=== PATIENT | male | born 1960 | race Caucasian/White ===

== ENCOUNTER 2017-12-24 04:53 | Inpatient (IN) | payer OTHER ==
[2017-12-24] VITALS (16 sets, daily range): BP systolic 121–200; BP diastolic 73–119
[~2017-12-24] VITALS: Ht 182.9 cm; Wt 72.7 kg
[~2017-12-24 04:53] MED LIST: BACTRIM DS TAB1 EACH PO; BYSTOLIC 5 MG5 M1 PO
[2017-12-24] MEDS ORDERED: LISINOPRIL20 MG PO (05:04)
--- NOTE | 2017-12-24 05:04 | NUR ---
PATIENT PRESENTS VIA WAITING ROOM. PATIENT STATES HE DROVE TO THE HOSPITAL; BECAUSE HE HAS BEEN WITHOUT HIS METHADONE AND HAS BEEN DRINKING ALCOHOL AND NEEDS HIS METHADONE. PATIENT SITTING IN A WHEELCHAIR, HAS ARM TREMOURS AND HOLDING AN EMISIS BAG. PATIENT HAVING FREQUENT OUTBURSTS STATING IN NEED HELP AND I NEED MY METHADONE.
[2017-12-24] MEDS ORDERED: METHADONE10 MG/1 M1 PO (05:05)
[2017-12-24 06:04] LABS: ABSOLUTE LYMPHOCYTES 1.6 thou/uL (0.8-5.3); ABSOLUTE MONOCYTES 0.8 thou/uL (0.0-1.2); ABSOLUTE NEUTROPHILS 12.9 thou/uL (1.6-8.1); BASOPHILS 0.3 %; EOSINOPHILS 0.1 %; HEMATOCRIT 52.6 % (42.0-52.0); LYMPHOCYTES 10.7 %; MCHC 34.2 g/dL (28.0-37.0); MCV 99.3 fL (80.0-100.0); MONOCYTES 5.3 %; MPV 7.5 fl. (7.2-11.1); NUCLEATED RBCS 0 /100WBC; PLATELET COUNT* 321 thou/uL (150-400); POLYS 83.6 %; RBC 5.29 mil/uL (4.50-6.00); RDW-CV 15.6 % (10.5-14.5); WBC 15.4 thou/uL (4.0-11.0)
[2017-12-24 06:20] LABS: CALCIUM 8.5 mg/dL (8.5-10.1); POTASSIUM 3.9 mmol/L (3.5-5.1)
[2017-12-24 06:25] LABS: ALBUMIN 4.3 g/dL (3.4-5.0); TOTAL BILIRUBIN 0.4 mg/dL (<0.1-1.0); TOTAL PROTEIN 8.8 g/dL (6.4-8.2)
--- NOTE | 2017-12-24 14:38 | EKG ---
[place] [address] ELECTROCARDIOGRAM REPORT Name: ELLIOTT HERNANDEZ Room: [address] ADM IN .R.#: [id number] Admission: 12/24/17 Attend Phys: Sharonda June MD Discharge: Date of : 64 Report #: [id number] THIS REPORT FOR: //name// [facility] ED Test Date: 2017-12-24 Test Time: 08:29:49 Pat Name: ELLIOTT HERNANDEZ Department: Room: [facility] Gender: M Senior Project Leader/Team Lead: LAURA : 1960 Requested By: Luana Cali Order Number: [id number] MD: Nikita Dillon Measurements Intervals [place] Rate: 124 P: 74 CT: 167 QRS: 65 QRSD: 87 T: 14 QT: 316 QTc: 454 Interpretive Statements Sinus tachycardia No previous ECG available for comparison Electronically Signed On 12-24-2017 14:38:04 CDT by Nikita Dillon [email or web address] <ELECTRONICALLY SIGNED> By: Marlyn Dillon MD, [facility] 12/24/17 1438 0829 8 Marlyn Dillon MD, FACC /EPI
--- NOTE | 2017-12-24 18:45 | NUR ---
PATIENT WAS VERY AGITATED DURING THE SHIFT. PATIENT'S CIWA RANGED 14-21. PATIENT IS IMPULSIVE AND GETS OUT OF BED. SITTER AT BEDSIDE. BEDSIDE REPORT TO BE GIVEN TO ONCOMING SHIFT.
[2017-12-25] VITALS (22 sets, daily range): BP systolic 123–167; BP diastolic 72–107
[2017-12-25 04:14] LABS: HEMATOCRIT 37.8 % (42.0-52.0); MCHC 34.5 g/dL (28.0-37.0); MCV 98.6 fL (80.0-100.0); MPV 7.8 fl. (7.2-11.1); RBC 3.84 mil/uL (4.50-6.00); RDW-CV 15.9 % (10.5-14.5); WBC 8.1 thou/uL (4.0-11.0)
[2017-12-25 05:12] LABS: ALBUMIN 2.9 g/dL (3.4-5.0); CREATININE 0.8 mg/dL (0.6-1.3); MAGNESIUM 1.9 mg/dL (1.8-2.4); POTASSIUM 3.9 mmol/L (3.5-5.1); TOTAL PROTEIN 5.5 g/dL (6.4-8.2)
--- NOTE | 2017-12-25 05:26 | NUR ---
PT. REMAINS ORIENTED TO PERSON AND PLACE, ORIENTED TO DATE BUT FORGETFUL REGARDING TIME. REORIENTED SUCCESSFULLY. LAST CIWA 7. PT. HAD FAIR APPETITE THIS SHIFT, ATE MAJORITY OF BOXED LUNCH. IVF INFUSING. PT. IS CONTINENT OF URINE. SITTER HAS REMAINED AT BEDSIDE THROUGHOUT SHIFT. ROOM AIR. WILL CONTINUE TO MONITOR.
--- NOTE | 2017-12-25 07:32 | NUR ---
ASSUMED CARE OF PATIENT AFTER RECEIVING BEDSIDE REPORT. ASSESSMENT COMPLETED, VSS. PATIENT STILL VISIBLY SHAKY, REQUESTING ATIVAN. DISCUSSED SKILLED NURSING RECOVERY OPTIONS. PATIENT COMPLAINS OF DIFFICULTY WITH TAKING DEEP BREATHING, OXYGEN PROVIDED. PATIENT MORE COMPLIANT THIS MORNING. PROSTHETIC DENTIST IN PLACE, SINUS RHYTHM NOTED. BED ALARM ON. CALL LIGHT WITHIN REACH, USE REINFORCED. WILL CONTINUE TO MONITOR.
--- NOTE | 2017-12-25 18:17 | NUR ---
PATIENT VERY ANXIOUS TODAY. PATIENT BECAME VERY IMPULSIVE AND NOT ORIENTED THIS AFTERNOON. PATIENT REQUIRED SEVERAL DOSES OF ATIVAN. PATIENT THREATENED TO LEAVE AMA AND IT WAS EXPLAINED SEVERAL TIMES THAT HE IS NOT STABLE ENOUGH. PATIENT ALMOST FELL SEVERAL TIMES REQUIRING A SITTER AGAIN. PATIENT VERY FORGETFUL AT TIMES. PATIENT REPORTS NOT FEELING INTOXICATED ANYMORE. PATIENT'S NEICE VISITED TODAY AND AGREED TO CARE FOR DOGS. PATIENT MORE COMPLIANT WITH SITTER IN THE ROOM. PATIENT REQUESTED SEVERAL TIMES TO BE SEDATED. PATIENT ALSO EMOTIONALLY LABILE. PATIENT LOST 3 IV'S TODAY REQUIRING FREQUENT RESTARTS. WILL GIVE BEDSIDE REPORT AT SHIFT CHANGE TO ONCOMING SHIFT.
[2017-12-26] VITALS (10 sets, daily range): BP systolic 123–209; BP diastolic 69–119
--- NOTE | 2017-12-26 02:35 | NUR ---
PT. HAS BEEN MORE CONFUSED/ANXIOUS REQUIRING FREQUENT REORIENTING. IMPULSIVE, ATTEMPTS TO CLIMB OUT OF BED FREQUENTLY. PT. IS EASILY REORIENTED. AT TIMES HE IS ORIENTED X4, BUT OTHER TIMES HE CONFUSES THIS RN WITH SOMEONE ELSE AND THINKS HE IS NOT IN THE HOSPITAL. ATIVAN PRN GIVEN FREQUENTLY DUE TO HIGH CIWAS. BED ALARM ON, THIS RN AT BEDSIDE. WILL CONTINUE TO MONITOR.
--- NOTE | 2017-12-26 05:08 | NUR ---
CIWA'S HAVE BEEN 13-15 THROUGHOUT SHIFT. PT. FELL ASLEEP AT APPROXIMATELY 0330 AND REMAINS ASLEEP AT THIS TIME, HAS NOT SLEPT LONGER THAN 30 MIN INTERVALS THROUGHOUT SHIFT. FREQUENT ATIVAN IVP REQUIRED. PT. FREQUENTLY STATES HE IS "GOING OUTSIDE TO START HIS CAR UP AND HEAD HOME". EASILY REDIRECTED. IMPULSIVE THROUGHOUT SHIFT, THIS RN HAS BEEN AT BEDSIDE THROUGHOUT SHIFT TO ENSURE PT. SAFETY. PT. DOES NOT USE CALL LIGHT. WILL CONTINUE TO MONITOR.
--- NOTE | 2017-12-26 07:30 | NUR ---
PATIENT CARE ASSUMED AT 0700. PATIENT SLEEPING AT THIS TIME. PER REPORT, PATIENT HAS NOT SLEPT FOR MORE THAN 30 MINUTES UNTIL THIS MORNING. ALLOWING PATIENT TO REST AT THIS TIME. VITAL SIGNS STABLE. PHARMACY CALLED TO NOTIFY THIS NURSE THAT THEY CONTACTED PATIENT'S METHADONE CLINIC. PATIENT HAD BEEN COMPLETELY WITHDRAWLED FROM METHADONE FOR AT LEAST A WEEK, AND HAS BEEN GOING TO MULTIPLE HOSPITALS ATTEMPTING TO GET METHADONE PRESCRIPTION. PER THE CLINIC, PATIENT WAS CONSIDERED 'COMPLETELY WITHDRAWLED' FROM METHADONE AND HE IS NOT WELCOMED BACK AT THEIR CLINIC. AWAITING PHYSICIAN INPUT ON CONTINUING ORDER.
[2017-12-26 09:12] LABS: HEMATOCRIT 42.2 % (42.0-52.0); HEMOGLOBIN 14.3 gm/dL (14.0-18.0); MCH 33.7 pg (26.0-34.0); MCHC 33.9 g/dL (28.0-37.0); MCV 99.3 fL (80.0-100.0); MPV 7.3 fl. (7.2-11.1); RBC 4.24 mil/uL (4.50-6.00); RDW-CV 15.3 % (10.5-14.5); WBC 7.1 thou/uL (4.0-11.0)
--- NOTE | 2017-12-26 09:17 | NUR ---
DR STEWARD RETURNED CALL ABOUT METHADONE. ORDER DECREASED TO 50 MG/HR TO WEAN OFF. PATIENT CIWA UPON WAKING 13. PRN ATIVAN GIVEN WITH MORNING MEDICATIONS. BP ELEVATED. MORNING LISINIPRIL GIVEN. PATIENT LABS DRAWN. PATIENT ATE 100% OF BREAKFAST. DOES REMAIN SLIGHTLY IMPULSIVE. STANDS TO URINATE AND IS VERY UNSTEADY. DOES NOT FOLLOW COMMANDS WELL. REMAINS 1:1 NURSE SITTER. WILL CONTINUE WITH PLAN OF CARE.
[2017-12-26 09:26] LABS: CALCIUM 8.5 mg/dL (8.5-10.1); CREATININE 0.8 mg/dL (0.6-1.3); MAGNESIUM 1.6 mg/dL (1.8-2.4); POTASSIUM 3.9 mmol/L (3.5-5.1); TOTAL PROTEIN 6.3 g/dL (6.4-8.2)
--- NOTE | 2017-12-26 10:26 | NUR ---
PATIENT IMPULSIVELY WOKE UP AND ATTEMPTED TO STAND TO URINATE WITH NO SUCCESS. PATIENT THEN STATING HE FEELS AND CAN SEE WORMS ON THE OUTSIDE OF HIS BODY. PRN ATIVAN GIVEN. PATIENT NOW SLEEPING.
--- NOTE | 2017-12-26 11:10 | NUR ---
PT SLEEPING SO DID NOT DISTURB. SPOKE WITH PHARMACIST, PHARMACY CALLED PT'S METHADONE CLINIC, [facility] IN [place]. PT HAD BEEN COMPLETELY WEANED OFF HIS METHADONE BY THE CLINIC. CLINIC STATES THEY WILL NOT SEE THE PATIENT AGAIN. CASE MGT WILL ASSESS PT AT A LATER TIME.
--- NOTE | 2017-12-26 13:42 | NUR ---
AT 1240, GENERAL HELPER SITTER IN PLACE.
--- NOTE | 2017-12-26 16:42 | NUR ---
PATIENT EXTREMELY AGITATED, THREATENING TO LEAVE AMA. 1:1 SITTER REMAINS PRESENT. SECURITY CALLED. PATIENT RIPPING OFF EKG STICKERS. ATTEMPTING TO CALL HIS RIDE WITH THE CALL LIGHT. ABLE TO ANSWER ORIENTATION QUESTIONS, BUT STILL NOT COMPLETELY APPROPRIATE. KEEPS SAYING "CAN I JUST GET DOSED AND THEN LEAVE" REFERING TO HIS METHADONE. DR STEWARD PAGED. PATIENT LAYING IN BED AT THIS TIME AND STATES HE WILL STAY, BUT STATES IF HE GETS A RIDE, HE'S LEAVING. AWAITING DR. STEWARD'S CALLBACK. REFUSING ATIVAN AT THIS TIME.
--- NOTE | 2017-12-26 17:09 | NUR ---
DR STEWARD RETURNED PHONE CALL. STATED IF PATIENT TRIES TO LEAVE, DO NOT TRY TO RESTRAIN HIM, BUT POLICE MAY NEED TO BE CALLED IF HE DOES LEAVE TO LET THEM KNOW HE MAY BE WANDERING. PATIENT HAS AGREED TO STAY UNTIL TOMOROW AFTER METHADONE DOSE. DR STEWARD WILLING TO DISCHARGE HIM TOMORROW WITH [facility] IF HE DOES NOT REQUIRE ANY EXTRA PRN ATIVAN DOES, TO AVOID BENZO WITHDRAWL. PATIENT COMPLAINT WITH THIS AT THIS TIME.
[2017-12-27] VITALS (14 sets, daily range): BP systolic 126–204; BP diastolic 70–120
--- NOTE | 2017-12-27 06:25 | NUR ---
ASSUMED CARE OF PT AT 1900 PT ALERT AND ORIENTED WITH INTERMITTENT CONFUSION. PT ON SCHEDULED PO ATIVAN Q6H AND GEODON AND PRN ATIVAN 2 MG IV Q30 MINS. PT REQUIRED PRN ATIVAN REGULARLY THROUGHOUT THE NIGHT. PT ALSO GIVEN PRN HYDRALAZINE X1. PT FREQUENTLY REQUSTING TO BE ABLE TO LEAVE THE UNIT TO LOOK FOR HIS CAR OR HIS KEYS BUT WAS EASILY REDIRECTABLE. PT RUNNING NS/ST ON THE MONITOR. WILL CONTINUE PLAN OF CARE.
--- NOTE | 2017-12-27 09:39 | NUR ---
8675 ASSUMED CARE OF PATIENT. SEE DOCUMENTED ASSESSMENT. PT TRYING TO LEAVE. SECURITY AND DIRECTOR DECISION SUPPORT HERE. DR JESUS EN ROUTE TO SEE PATIENT
--- NOTE | 2017-12-27 09:40 | NUR ---
0852 PT HAS AGREED TO STAY. HUNGRY. ORDERED TRAY. SITTER PRESENT FOR SAFETY
--- NOTE | 2017-12-27 10:17 | NUR ---
PT PULLED OUT IV AND ATTEMPTED TO LEAVE. REDIRECTED TO ROOM AND SCURITY NOTIFIED
--- NOTE | 2017-12-27 12:27 | NUR ---
DURING INTERDISICPLINARY ROUNDS: PT CONFUSED AND TRYING TO LEAVE THE UNIT. PER NURSING AND PHARMACIST, DR JESUS INQUIRING ABOUT STEPS NEEDED FOR PT TO GET BACK INTO HIS METHADONE CLINIC. PER DAYO/RX, [phone]. ATTEMPTED TO CONTACT SOMEONE THERE TO DISCUSS, HAD TO LEAVE MESSAGE
--- NOTE | 2017-12-27 17:02 | NUR ---
PATIENT WITH MINIMAL PROGRESS TOWARDS GOALS. SEE NURSES NOTES. CIWA SCORES HIGH 26 TODAY. USUALLY WILL REDIRECT BUT CAN BE RESISTANT AT TIMES. REQUIRES FREQUENT PRN LORAZEPAM. APPETITE IS GOOD. CONTINUES ON MVI INFUSION. NO VISITORS OR CALLS TODAY. SAFETY MAINTAINED WITH SITTER
--- NOTE | 2017-12-27 19:33 | NUR ---
ASSUMED PATIENT CARE AT 1915. PATIENT ALERT TO SELF. STATING THAT HE IS IN ONE OF 2 PLACES, THE [employer] [facility] OR THE [employer] [facility]. ATTEMPTING TO GET OUT OF BED AND "GET HIS MEDICINE AND GO TO BED" REQUIRES FREQUENT REDIRECTION. QUESTIONING HIS IV TUBING SEVERAL TIMES AND ASKING WHAT IT WAS FOR AND IF HE COULD THROW IT AWAY. BP CUFF NOT IN PLACE AT THIS TIME PATIENT REFUSING TO PUT IT BACK ON. WILL CONTINUE TO MARVIN
[2017-12-28] VITALS (11 sets, daily range): BP systolic 91–167; BP diastolic 55–97
--- NOTE | 2017-12-28 04:55 | NUR ---
PATIENT CONTINUED TO BE AGITATED THROUGH SHIFT. SCHEDULED AND PRN MEDICATIONS GIVEN. NO IMPROVEMENT NOTED. PATIENT PLACED IN SOFT RESTRAINTS AT 2050. ATIVAN DRIP ORDER RECEIVED FROM DR. DELEON STARTED. PATIENT REMAINED AGGRESSIVE WITH HALLUCINATION BOTH AUDITORY AND VISUAL. ORIENTED TO SELF ONLY. PATIENT WENT TO SLEEP AT APPROX 0145. 0200 GEODON NOT GIVEN R/T THIS. PATIENT AWAKENED ABRUPTLY AT APPROX 0400. VERY AGITATED, THREATENING STAFF AND ROLLING IN BED, PULLING VIOLENTLY AT RESTRAINTS. 0200 DOSE OF GEODON GIVEN AT THIS TIME. VITAL SIGNS REMAIN STABLE WHEN RN ABLE TO GET THEM. PATIENT CONTINUOSLY PULLS ON TUBING AND ELECTRODES. PATIENT REQUESTED TO HAVE HIS SWEATPANTS CUT OFF. EDUCATED PATIENT THAT SCISSORS WOULD BE USED TO CUT OFF SWEATPANTS. PATIENT REITERATED THAT HE WANTED THEM OFF. RN COMPLIED. PROJECT FINANCE ANALYST COMPLETED DOCUMENTED.
--- NOTE | 2017-12-28 08:00 | NUR ---
RECEIVED REPORT FROM KELIN SINGLETON. ASSESSMENT CHARTED. AFEBRILE. PT IS AGITATED AND RESTLESS IN BED. ATIVAN GTT INFUSING. 4 POINT RESTRAINTS. SITTER IN ROOM WITH PT. WILL CONTINUE TO MONITOR.
--- NOTE | 2017-12-28 10:30 | NUR ---
PT REMAINS IN RESTRAINTS, HALLUCINATING, HAS A SITTER. CASE MGT WILL CONTINUE TO FOLLOW.
[2017-12-29] VITALS (13 sets, daily range): BP systolic 93–112; BP diastolic 58–80
--- NOTE | 2017-12-29 05:57 | NUR ---
PROGRESSING TOWARDS GOALS, REMAINS CONFUSED, ALERT INTERMITTENTLY TO PERSON, AND TO TIME, CIWA DECREASING FROM 38 TO 27, BILAT WRIST RESTRAINTS REMOVED, PT ABLE TO FEED SELF ICE CREAM AND CRACKERS, TOLERATING PO FLUIDS, MILD TREMORS, NSR TRACING AUTOMATION TESTER, ATIVAN GTT DECREASED FROM 5MG/HR TO 4MG/HOUR, EASILY AROUSABLE TO VERBAL STIMULI, CHRISTIANSON PATENT TO DD, BED REMAINS IN LOW AND LOCKED POSITON, SITTTER 1:1 BEDSIDE, BED ALARM ON FOR SAFETY.
--- NOTE | 2017-12-29 08:03 | NUR ---
RECEIVED REPORT FROM KELIN BLACKWOOD. ASSESSMENT CHARTED. AFEBRILE. PT OUT OF RESTRAINTS. STILL HALLUCINATING AND ONLY OREINTED TO SELF. ATIVAN GTT INFUSING. SITTER WITH PT. WILL CONTINUE TO MONITOR.
[2017-12-30] VITALS (12 sets, daily range): BP systolic 91–137; BP diastolic 47–89
[2017-12-30 04:32] LABS: HEMATOCRIT 37.2 % (42.0-52.0); HEMOGLOBIN 12.9 gm/dL (14.0-18.0); MCH 34.5 pg (26.0-34.0); MCHC 34.7 g/dL (28.0-37.0); MCV 99.4 fL (80.0-100.0); MPV 8.5 fl. (7.2-11.1); RBC 3.75 mil/uL (4.50-6.00); RDW-CV 14.8 % (10.5-14.5)
[2017-12-30 04:55] LABS: CALCIUM 8.5 mg/dL (8.5-10.1); CREATININE 0.8 mg/dL (0.6-1.3); MAGNESIUM 1.7 mg/dL (1.8-2.4); POTASSIUM 3.9 mmol/L (3.5-5.1); TOTAL BILIRUBIN 0.8 mg/dL (<0.1-1.0); TOTAL PROTEIN 5.9 g/dL (6.4-8.2)
--- NOTE | 2017-12-30 07:46 | NUR ---
PROGRESSING TOWARDS GOALS, SEE COMPUTERIZED ASSESSMENT CHARTING FOR FURTHER DETAILS, CIWA DECREASED FROM 27 TO 25 DURING NOC, DENIES PAIN OR DISCOMFORT, ABLE TO REORIENT, ATIVAN GTT CONTINUES 3MG/HR, C/O HIGH ANXIETY, IV REPLACED X2 DURING NOC, 1:1 SITTER REMAINS AT BEDSIDE FOR SAFETY, NSR WITH OCCASIONAL PVC'S TRACING ON MANAGER UTILIZATION REVIEW, AFEBRILE, RA WITHOUT S/S OF RESPIRATORY DISTRESS, CHRISTIANSON PATENT TO DD, BED REMAINS IN LOW AND LOCKED POSITION FOR SAFETY.
--- NOTE | 2017-12-30 11:00 | NUR ---
Called [facility] (methadone clinic) [phone] and spoke with Trupti earlier. She said that pt repeatedly would come in drunk, they were working on tapering down his Methadone to get him totally off of it and then he quit coming all together. She said it would be up to the doctor if they could take him back or not, she would discuss with the doctor and call me. Received call back from Dr. Marivel Dial (cell phone [phone]). She said they would not be accepting pt back to the clinic due to his alcoholism. She said they tried to get him in to treatment for his drinking and he refused. He has just been discharged from [facility] for an admission for alcohol withdrawl. She recommends tapering pt off his Methadone, she said to decrease the current dose of 75 mg daily to 50 mg daily, and then to decrease the dose by 10 mg every day until he was off of it all together. She said she would be happy to talk to the admitting physician if he has further questions or wants to talk to her. Spoke with Dr. Howard and gave him the dr's recommendations and her cell phone if he wanted to call her. Nursing updated on my conversation with methadone clinic also.
--- NOTE | 2017-12-30 19:44 | NUR ---
SPOKE WITH DR HALL PECAN GROWER FOR DR JESUS PT SCHEDULED BOTH PEPCID 20MG PO BID AND PROTONIX 40MG IVP BID, ORDER CLARIFICATION: DC PEPCID AND CONTINUE SCHEDULED PROTONIX 40MG BID. WILL INITATE ORDER AND CONTINUE TO MONITOR.
[2017-12-31] VITALS: BP 116/74
[2017-12-31 02:00] VITALS: BP 114/68
[2017-12-31 04:27] LABS: HEMATOCRIT 37.4 % (42.0-52.0); MCH 34.4 pg (26.0-34.0); MCHC 34.7 g/dL (28.0-37.0); MPV 8.4 fl. (7.2-11.1); RBC 3.78 mil/uL (4.50-6.00); RDW-CV 14.7 % (10.5-14.5); WBC 7.5 thou/uL (4.0-11.0)
[2017-12-31 04:54] LABS: ALBUMIN 3.3 g/dL (3.4-5.0); CREATININE 0.9 mg/dL (0.6-1.3); MAGNESIUM 1.7 mg/dL (1.8-2.4); POTASSIUM 4.4 mmol/L (3.5-5.1); TOTAL BILIRUBIN 0.6 mg/dL (<0.1-1.0); TOTAL PROTEIN 6.6 g/dL (6.4-8.2)
--- NOTE | 2017-12-31 06:04 | NUR ---
POOR PROGRESSION TOWARDS GOALS, CIWA INCREASED 33 FROM 27 DURING SHIFT, AWAKE, ALERT TO SELF, IMPULSIVE, DIFFICULT TO REDIRECT AT TIMES, UNABLE TO REORIENT TO PLACE, AND SITUATION, PULLING AT IV TUBING, ATTEMPTING TO GET OOB WITHOUT ASSIST, INTERMITTENTLY REMOVING OXYGEN PROBE, STATES SISTER WAS HERE AT HOSPITAL AT 2004 AND NO ONE WOULD ALLOW HER TO ENTER, NO VISITORS INCLUIDING FAMILY HERE DURING SHIFT, CONSTANT SITTER AT BEDSIDE 1:1, PERIPHERAL IV LEFT FOREARM INFILTRATED, REMOVED IV, WARM PACK APPLIED TO LEFT FOREARM, NSR/ST TRACING WITH PVCS' TRACING ELECTRICAL TRYOUT PERSON, USING URINAL WITH ASSIST TO VOID CLEAR YELLOW URINE, AWAKE MOST OF NOC, RESTING QUIELTY WITH EYES CLOSED FOR APROX 10MIN FOLLOWED AROUSING IMPULSIVE WITH INCREASED ANXIETY. DECREASED STIMULI PROVIDED.
[2017-12-31 08:00] VITALS: BP 117/77
[2017-12-31 11:10] VITALS: BP 116/42
[2017-12-31 15:33] VITALS: BP 110/75
--- NOTE | 2017-12-31 16:00 | NUR ---
ASSUMED CARE OF PT AROUND 0730 THIS AM. REFER TO ASSESSMENT. PT REMAINS ON 1:1 OBSERVATION. SITTER AT BEDSIDE. TELE PSYCH CONSULTED THIS SHIFT AND MADE CHANGES WITH MEDICATION REGIMEN. NO OTHER CONCERNS AT THIS TIME. CLWR. WCTM.
[2017-12-31 20:00] VITALS: BP 100/63
--- NOTE | 2017-12-31 22:15 | NUR ---
PT PULLED OFF CENTRAL LINE DRESSING, CALLED RN TO ROOM, HOLDING CENTRAL LINE DRESSING, STATED "WHY DO I HAVE THIS BANDAID ON MY NECK, CENTRAL LINE REMAINS IN TACT, CLEANED CENTRAL LINE INSERTION SITE PER CENTRAL LINE PROTOCOL, NO DREAINAGE, REDNESS OR EDEMA NOTED TO AREA, STAT PORTABLE CHEST XRAY ORDERED TO VERIFY R JUGULAR TRIPLE LUMEN LINE REMAINS IN PLACE, IVF STOPPED UNTIL PLACMENT VERIFICATION OBTAINED. EDUCATED PT RATIONALE FOR CENTRAL LINE, AND NEED TO LEAVE DRESSING IN PLACE, WILL CONTINUE TO MONITOR.
[2018-01-01] VITALS (7 sets, daily range): BP systolic 89–151; BP diastolic 49–78
[2018-01-01 05:18] LABS: MAGNESIUM 1.9 mg/dL (1.8-2.4); POTASSIUM 4.3 mmol/L (3.5-5.1)
--- NOTE | 2018-01-01 07:52 | NUR ---
PATIENT RESTED IN BED, NO ACUTE CHANGES. PATIENT SHOWED IMPROVEMENT, PATIENT DID NOT SHOW SIGNS OF DISTRESS. FALL PRECAUTIONS IN PLACE, SITTER AT BED SIDE, HOURLY ROUNDING OBSERVED, CALL LIGHT WITHIN REACH.
[2018-01-01 10:37] LABS: ALBUMIN 3.2 g/dL (3.4-5.0); DIRECT BILIRUBIN 0.1 mg/dL (<0.1-0.3); TOTAL BILIRUBIN 0.5 mg/dL (<0.1-1.0); TOTAL PROTEIN 6.9 g/dL (6.4-8.2)
--- NOTE | 2018-01-01 17:08 | NUR ---
PT NOT PROGRESSING TOWARDS GOALS. NOTED TO BE MORE DROWSY THIS SHIFT AND FREQUENTLY WAKING UP DISORIENTED AND AGITATED. CONTINUE 1:1 OBSERVATION. TELE SR. B/P LOW THIS AM, NORMALIZED AT THIS TIME. NO OTHER CONCERNS AT THIS TIME. CLWR. WCTM.
[2018-01-02] VITALS: BP 95/68
--- NOTE | 2018-01-02 02:58 | NUR ---
DOCTOR NOTIFED OF HEADACHE, SEE ORDERS.
[2018-01-02 04:00] VITALS: BP 101/69
--- NOTE | 2018-01-02 07:38 | NUR ---
PATIENT RESTED IN BED. PATIENT WAS COOPERATIVE, NO ACUTE CHANGES, PATIENT DOES NOT SHOW SIGNS OF DISTRESS. PATIENT ORIENTATION STATUS INCREASED DURING THE SHIFT. FALL PRECAUTIONS IN PLACE.
--- NOTE | 2018-01-02 07:43 | NUR ---
SITTER WAS AT PATIENT DID SIDE DURING MARKETING AUTOMATION SPECIALIST.
[2018-01-02 08:00] VITALS: BP 116/66
[2018-01-02 11:33] VITALS: BP 130/71
[2018-01-02 13:08] LABS: ANA INTERPRETATION Negative (Negative)
--- NOTE | 2018-01-02 14:45 | NUR ---
CM attempted to make contact with a CM at [facility], CM contacted [phone], phone rang continuously with no voicemail option. CM trying to figure out if while Pt was at [facility], they initiated setting Pt up with a methadone clinic. CM will continue to try and contact someone there. CM contacted [facility], they offer Suboxone with participation in groups and appts. Per Pt, he plans to return home. Following.
[2018-01-02 15:00] VITALS: BP 118/74
--- NOTE | 2018-01-02 15:01 | CON ---
[address] [address] CONSULTATION Name: ELLIOTT HERNANDEZ Room: [address] IN .R.#: [id number] Admission: 12/24/17 Attend Phys: Sharonda June MD Discharge: Date of : 64 Report #: [id number] THIS REPORT FOR: //name// CC: Melvin June DATE OF SERVICE: 12/31/2017 REASON FOR CONSULT: Anemia. HISTORY OF PRESENT ILLNESS: This is a 57-year-old male with history of methadone dependency who also has been recently drinking heavily since he has not been able to get his methadone. He is currently withdrawing. The patient is mildly anemic with hemoglobin of 12. This has been stable since admission. He denies any hematochezia, melena, change in bowel habits. He reports that his last colonoscopy was when he was 54, which was 3 years ago. He does not believe there was any significant finding in his colonoscopy. PAST MEDICAL HISTORY: Significant for history of methadone dependency, hypertension, opioid abuse, ethanol abuse, appendicitis. ALLERGIES AND MEDICATIONS: Please refer to hospital [facility]. SOCIAL HISTORY: The patient apparently receives methadone from his methadone clinic, but he was denied since he was drinking alcohol heavily. He presents to the hospital with signs of withdrawal. FAMILY HISTORY: Noncontributory. PHYSICAL EXAMINATION: VITAL SIGNS: Reveals blood pressure of 117/77, respirations 12, pulse 85, temperature 98.5. LUNGS: Clear. CARDIOVASCULAR: Regular. ABDOMEN: Soft, tender to palpation in the lower quadrants and epigastric region. Bowel sounds are positive. LABORATORY DATA: Revealed sodium of 140, potassium 4.4, BUN is 10, creatinine 0.9, glucose 114, AST is 11, ALT 13, alkaline phosphatase 72. Magnesium 1.7, total bilirubin is 0.6. WBC is 7.5, hemoglobin 13 with platelet of 131. IMAGING: Abdominal ultrasound was obtained, but pending results. ASSESSMENT AND PLAN: The patient with borderline anemia who has had a colonoscopy 3 years ago and denies any hematochezia or melena. [place] [address] CONSULTATION Name: ELLIOTT HERNANDEZ Room: [address] IN [facility]#: [id number] Admission: 12/24/17 Attend Phys: Sharonda June MD Discharge: Date of : 64 Report #: [id number] history of alcohol abuse and methadone dependence and currently going through withdrawal. We will continue monitoring the patient and we follow up with the ultrasound results. At this time, we would not consider any kind of intervention as the patient appears unstable and withdrawing from alcohol and methadone. <ELECTRONICALLY SIGNED> By: Doyle Coker MD 01/02/18 1501 1048 [id number] Talat Coker MD /nt
--- NOTE | 2018-01-02 18:26 | NUR ---
ASSUMED PT CARE AT 0730, FULL ASSESMENT DONE CHARTED.PT ORIENTED X4,HAS TREMORS, PT REPORTS SOME SWEATS, DENIES HALLUCINATIONS TODAY, HAS APPRORIATE CONVERSATIONS WITH STAFF. ATTEMPTED TO HAVE 1:1 OUT OF ROOM, PT IS UNSTEADY AND ATTEMPTS TO GET OUT OF BE WITH OUT ASSIST FREQUENTLY. PT EDUCATED TO USE CALL LIGHT AND WAIT FOR STAFF WHEN NEEDING TO GET UP. PT NEEDS TO BE REMINDED FREQNENTLY. SITTER WITH PT THIS EVENING, PTS IV PULLED OUT BY PT ON ACCIDENT. WILL ATTMEPT TO PLACE NEW IV. BED ALARM ON, SAFETY PRECAUTION IN PLACE.
[2018-01-02 19:45] VITALS: BP 108/64
[2018-01-03] VITALS (8 sets, daily range): BP systolic 84–123; BP diastolic 41–83
[2018-01-03 10:57] LABS: AMP/METHAMP Negative (Negative); BARBITURATES Negative (Negative); BENZODIAZEPINES Negative (Negative); COCAINE Negative (Negative); METHADONE POSITIVE (Negative); OPIATES Negative (Negative); PCP Negative (Negative); THC Negative (Negative)
--- NOTE | 2018-01-03 12:19 | NUR ---
WOUND CARE NOTE: CONSULT RECEIVED FOR WOUND TO COCCYX. PATIENT PRESENTS WITH WHAT APPEARS TO BE AN ABRASION TO HIS SACRUM. DYLAN-WOUND WITH REDNESS, BUT BLANCHES. BELIEVE TO BE FROM FRICTION/SHEARING. WOUND MEASURES 6X4X0.1. SUPERIOR ASPECT OF WOUND WITH YELLOW, ADHERENT SLOUGH TISSUE. PATIENT DENIES PAIN TO AREA. CLEANSED WITH WOUND CLEANSER, PATTED DRY. SKIN PREPPED. APPLIED AQUACEL AG TO WOUND BED. COVERED WITH EXUDERM. SECURED WITH TEGADERM. RIGHT ELBOW: ALSO APPEARS AN ABRASION, POSSIBLY FROM FRICTION/SHEARING. WOUND MEASURES 1X0.6X0.1. DRY, PALE WOUND BED. DYLAN-WOUND INTACT WITHOUT REDNESS. APPLIED BANDAID. EDUCATED PATIENT ON KEEPING OFF OF HIS BOTTOM, COMPLIED AND STAYED ON LEFT SIDE. PATIENT IMPULSIVE AND WILL NEED EDUCATION ON KEEPING OFF AREA. RECOMMEND SIDE TO SIDE TURNING WAFFLE CUSHION IF IN CHAIR ENCOURAGE GOOD NUTRITION AND HYDRATION
--- NOTE | 2018-01-03 19:01 | NUR ---
ASSUMED PT CARE AT 0730, FULL ASSESMENT DONE CHARTED.PT A/O X4, ANXIOUS AT TIMES. PT C/O GENERALIZED PAIN, DISCUSSED METHADONE TAPER WITH PT AND DR, PT UPSET ABOUT THE TAPER, DR CHANGED ORDER FOR TODAY. PT NPO THIS AM FOR EGD, BECAME UPSET THAT HE COULD NOT EAT, PT WAS ABLE TO GET EXTRA DOSE OF ATIVAN WHICH DID HELP. PT ABLE TO EAT REGULAR FOOD AFTER EGD WITHOUT COMPLICATIONS. 1:1 REMOVED, PT DOING WELL, DOES GET UP WITHOUT CALLING SOMETIMES, PT REEDUCATED ON FALL PRECATUIONS. VSS, SR ON THE MONITOR. WILL CONTINUE TO MONITOR.
[2018-01-04 04:00] VITALS: BP 112/62
[2018-01-04 05:28] LABS: HEMATOCRIT 38.7 % (42.0-52.0); HEMOGLOBIN 13.4 gm/dL (14.0-18.0); MCH 34.2 pg (26.0-34.0); MCHC 34.7 g/dL (28.0-37.0); MCV 98.4 fL (80.0-100.0); MPV 8.1 fl. (7.2-11.1); RBC 3.93 mil/uL (4.50-6.00); RDW-CV 14.7 % (10.5-14.5)
[2018-01-04 05:59] LABS: CALCIUM 9.2 mg/dL (8.5-10.1); MAGNESIUM 1.8 mg/dL (1.8-2.4); POTASSIUM 4.7 mmol/L (3.5-5.1)
--- NOTE | 2018-01-04 07:51 | NUR ---
PATIENT PROGRESSING TOWARDS GOALS: PATIENT REMAINS COOPERATIVE THROUGHOUT SHIFT DESPITE ANXIETY. CIWA <10 THROUGHOUT SHIFT. MEDS ADMINISTERED PER MAR WITH EFFECTIVENESS. PATIENT RESTING COMFORTABLY. HOURLY ROUNDING OBSERVED. CALL LIGHT WITHIN REACH
[2018-01-04 07:59] VITALS: BP 114/73
--- NOTE | 2018-01-04 08:21 | NUR ---
CM spoke with Evon p:[phone], behavioral health liaison, through Pt's insurance. Evon provided CM with the names of 2 Drs that are covered under Pt's insurance that provide methadone tx, Dr Wade Oconnor with [facility] p:[phone] Clinton with [facility] p:[phone], CM to contact and try to arrange an appt for Pt. Following.
--- NOTE | 2018-01-04 09:19 | NUR ---
ASSUMED CARE OF PATIENT AFTER REPORT THIS MORNING. PATIENT AWAKE, ALERT, AND ORIENTED APPROPRIATELY. PHYSICAL ASSESSMENT COMPLETED AND CHARTED. COMPLAINED OF PAIN AND ANXIETY. GIVEN SCHEDULED AND PRN MEDICATIONS, SEE EMAR FOR DOCUMENTATION. CIWA SCORING 8. PATIENT ATTEMPTS TO TRANSFER AND AMBULATE INDEPENDENTLY, IS IMPULSIVE, BED ALARM IN USE. HAS BEEN EDUCATED TO USE CALL LIGHT AND WAIT FOR STAFF TO ASSIST WITH TRANSFER AND AMBULATION. PATIENT IS UNSTEADY ON HIS FEET. DENIES NEEDS AT THIS TIME. CALL LIGHT WITHIN REACH. NURSING WILL CONTINUE TO MONITOR.
[2018-01-04 11:12] LABS: HIV-1/HIV-2 ANTIBODY Non Reactive (Non Reactive)
[2018-01-04 12:18] VITALS: BP 115/67
--- NOTE | 2018-01-04 15:06 | NUR ---
CM contacted several methadone clinics today and was informed that Pt will need to call and complete the phone assessment. CM provided Pt with a list of methadone clinics and requested that he call and complete the assessments. Pt voiced understanding and stated that he will begin calling today.
[2018-01-04 15:47] VITALS: BP 100/59
--- NOTE | 2018-01-04 18:05 | NUR ---
PATIENT REMAINS ALERT AND ORIENTED APPROPRIATELY. HAS COMPLAINED OF ANXIETY AND TREMORS AND HEADACHE THIS ENTIRE SHIFT. HAS BEEN GIVEN MEDICATIONS ORDERED, SEE EMAR FOR DOCUMENTATION. SHOWERED. DENIES NEEDS AT THIS TIME. CALL LIGHT WITHIN REACH. NURSING WILL CONTINUE TO MONITOR.
[2018-01-04 20:00] VITALS: BP 116/83
[2018-01-05] VITALS (7 sets, daily range): BP systolic 97–125; BP diastolic 55–73
--- NOTE | 2018-01-05 01:03 | NUR ---
RECIEVED REPORT AND ASSUMED CARE OF PATIENT AT 1930. MULTI SLIDE MACHINE TENDER IN PLACE TRACING SR. ASSESSMENT AND VITALS COMPLETED CHARTED, VSS. PATIENT A&OX4. PATIENT ANXIOUS WITH TREMORS AND A HEADACHE. PATIENT TEARFUL ABOUT DOGS BEING AT HOME WITHOUT MUCH ATTENTION WHILE HE IS HERE. PATIENT REASSURED AND MEDS ADMINISTERED PER MAR FOR ANXIETY/RELAXATION. CIWAS IN PLACE [id number] TO CHARTING. GOAL IS IMPROVEMENT IN CIWA AND ANXIETY RELIEF. CALL LIGHT WITHIN REACH. REPORT GIVEN TO KELIN MENA, AT THIS TIME.
--- NOTE | 2018-01-05 05:12 | NUR ---
ASSUMED CARE OF PT AT 0030 FROM ANGY CHEEK RN, I CONCUR WITH DOCUMENTED ASSESSMENT. PT ALERT AND ORIENTED X4 VSS PT DENIED ANY COMPLAINTS AND SLEPT THROUGH THE NIGHT. WILL CONTINUE PLAN OF CARE.
[2018-01-05 08:35] LABS: ABSOLUTE BASOPHILS 0.1 thou/uL (0.0-0.2); ABSOLUTE EOSINOPHILS 0.1 thou/uL (0.0-0.7); ABSOLUTE LYMPHOCYTES 2.4 thou/uL (0.8-5.3); ABSOLUTE MONOCYTES 0.6 thou/uL (0.0-1.2); ABSOLUTE NEUTROPHILS 4.1 thou/uL (1.6-8.1); BASOPHILS 0.8 %; EOSINOPHILS 1.9 %; HEMATOCRIT 39.9 % (42.0-52.0); HEMOGLOBIN 13.8 gm/dL (14.0-18.0); LYMPHOCYTES 32.9 %; MCHC 34.5 g/dL (28.0-37.0); MCV 98.5 fL (80.0-100.0); MONOCYTES 8.4 %; MPV 8.1 fl. (7.2-11.1); NUCLEATED RBCS 0 /100WBC; PLATELET COUNT* 287 thou/uL (150-400); RBC 4.05 mil/uL (4.50-6.00); RDW-CV 14.3 % (10.5-14.5); WBC 7.2 thou/uL (4.0-11.0)
[2018-01-05 08:41] LABS: INR 1.2; PROTIME 11.2 Seconds (9.20-11.50)
[2018-01-05 09:09] LABS: ALBUMIN 3.5 g/dL (3.4-5.0); CALCIUM 9.3 mg/dL (8.5-10.1); POTASSIUM 4.2 mmol/L (3.5-5.1); TOTAL BILIRUBIN 0.3 mg/dL (<0.1-1.0); TOTAL PROTEIN 7.4 g/dL (6.4-8.2)
--- NOTE | 2018-01-05 11:06 | NUR ---
[id number] ASSUMED CARE OF PATIENT. SEE DOCUMENTED ASSESSMENT AND CIWA SCORING
--- NOTE | 2018-01-05 11:07 | NUR ---
RECONSULTING PSYCHIATRY PER ORDER DR JESUS
--- NOTE | 2018-01-05 12:14 | NUR ---
Spoke with Evon from Pt's BX dept of his insurance, Pt has an appt with his therapist, Cameron Marie at [facility] on 01/19/18 at 1pm, [address], [facility],
--- NOTE | 2018-01-05 12:57 | NUR ---
CALL MADE TO SPECIALIST DEMOLITION WORKER PER CLAIRE JESUS
--- NOTE | 2018-01-05 14:41 | NUR ---
PT INTERVIEWED BY PSYCHIATRIST AND RECOMMENDATIONS GIVEN TO DR JESUS. SPOKE WITH CASE MANAGEMENT REGARDING FINANCIAL NEEDS.
--- NOTE | 2018-01-05 15:29 | NUR ---
REPORT TO KELIN LYNCH
[2018-01-05 22:07] LABS: HEPATITIS B SURFACE AG Negative (Negative)
[2018-01-06] VITALS (7 sets, daily range): BP systolic 89–128; BP diastolic 54–72
--- NOTE | 2018-01-06 08:54 | NUR ---
ASSUMED CARE OF PATIENT AFTER REPORT THIS MORNING. PATIENT AWAKE, ALERT, AND ORIENTED APPROPRIATELY. PHYSICAL ASSESSMENT COMPLETED AND CHARTED. NO COMPLAINTS OF PAIN. GIVEN SCHEDULED MEDICATIONS, SEE EMAR FOR DOCUMENTATION. VITAL SIGNS STABLE. OXYGEN SATURATION WITHIN NORMAL LIMITS ON ROOM AIR. PATIENT TRANSFERS AND AMBULATES INDEPENDENTLY IN ROOM WITHOUT DIFFICULTY. USES CALL LIGHT APPROPRIATELY. DENIES NEEDS AT THIS TIME. CALL LIGHT WITHIN REACH. NURSING WILL CONTINUE TO MONITOR.
--- NOTE | 2018-01-06 12:54 | NUR ---
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 CM provided Pt with 2 additional clinics. CM provided Pt with [employer] number, Pt stated that he's going to need help paying his house and car payments. Following.
--- NOTE | 2018-01-06 17:55 | NUR ---
PATIENT REMAINS ALERT AND ORIENTED APPROPRIATELY. HAS RECEIVED PRN MEDICATIONS FOR ANXIETY AND AGITATION TODAY, SEE EMAR FOR DOCUMENTATION. DENIES NEEDS AT THIS TIME. CALL LIGHT WITHIN REACH. NURSING WILL CONTINUE TO MONITOR.
--- NOTE | 2018-01-07 02:00 | NUR ---
RECIEVED REPORT AT 1930. ASSESSMENT COMPLETED CHARTED. A & O X 4, ABLE TO MAKE NEEDS KNOWN, UP AD ELAINE, CALL LIGHT WITHIN REACH. CIWA STAYS AT A 4, GETS HALDOL AND ATIVAN NEEDED AND HALDOL SCHEDULED. NO C/O PAIN. WILL CONTINUE WITH PLAN OF CARE.
[2018-01-07 04:15] VITALS: BP 96/56
[2018-01-07 08:00] VITALS: BP 103/70
[2018-01-07 12:37] VITALS: BP 99/59
--- NOTE | 2018-01-07 12:47 | NUR ---
Pt informed CM that CM will need to contact [facility] on Tuesday at 9am [phone] to begin tapering Methadone dose by 10mgs beginning tomorrow. CM discussed inpt ETOH treatment and Pt refused, stating "I need to get out and get a job, I have bills to pay and dogs to take care of." Following.
[2018-01-07 16:53] VITALS: BP 107/65
--- NOTE | 2018-01-07 18:03 | NUR ---
RECEIVED REPORT AND ASSUMED CARE AT 0730. VSS. CARDIAC MONITORING IN PLACE. PT REPORTS PAIN IN HIS HEAD. MEDICATION ADMINISTERED. PT ON RA, UP AD ELAINE IN ROOM. PT SCHEDULED TO TAPER METHADONE 10 MG DAILY. PT REPORTS ANXIETY, PRN MEDICATION ADMINISTERED ORDERED. HOURLY ROUNDING COMPLETED AND ALL NEEDS MET. BED IN LOWEST POSITION, CALL LIGHT WITHIN REACH. WILL CONTINUE TO MONITOR FOR THE REMAINDER OF THE SHIFT
[2018-01-07 20:00] VITALS: BP 99/59
[2018-01-07 23:49] VITALS: BP 109/60
[2018-01-08 03:44] VITALS: BP 94/59
[2018-01-08 04:25] LABS: HEMATOCRIT 38.3 % (42.0-52.0); HEMOGLOBIN 13.2 gm/dL (14.0-18.0); MCH 33.9 pg (26.0-34.0); MCHC 34.4 g/dL (28.0-37.0); MCV 98.4 fL (80.0-100.0); MPV 8.1 fl. (7.2-11.1); RBC 3.9 mil/uL (4.50-6.00); RDW-CV 14.7 % (10.5-14.5)
[2018-01-08 05:01] LABS: ALBUMIN 3.3 g/dL (3.4-5.0); CALCIUM 8.9 mg/dL (8.5-10.1); CREATININE 0.9 mg/dL (0.6-1.3); MAGNESIUM 1.8 mg/dL (1.8-2.4); POTASSIUM 4.7 mmol/L (3.5-5.1); TOTAL BILIRUBIN 0.2 mg/dL (<0.1-1.0); TOTAL PROTEIN 6.4 g/dL (6.4-8.2)
--- NOTE | 2018-01-08 06:10 | NUR ---
PROGRESSING TOWARDS GOALS, A/OX4, UP AD ELAINE IN HALLWAY WITH STEADY GAIT, C/O ANXIETY REQUESTING AND RECEIVED ATIVAN 1MG PO X2 WITH EFFECTIVE RESULTS PER PT VERBALIZED, RA, NO S/S OF RESPIRATORY DISTRESS, DENIES SOA, SB/SR TRACING ACTIVITY COORDINATOR, HR RANGES HIGH 40'S TO 60'S, RESTING QUIELTY WITH EYES CLOSED MOST OF NOC, EASILY AROUSABLE TO VERBAL STIMULI, DENIES PAIN OR DISCOMFORT, BED REMAINS IN LOW AND LOCKED POSITION, CALL LIGHT REMAINS IN REACH, HOURLY ROUNDING DONE PER POLICY.
[2018-01-08 08:00] VITALS: BP 116/69
[2018-01-08 11:51] VITALS: BP 114/65
--- NOTE | 2018-01-08 13:22 | NUR ---
ASSUMED CARE OF PT AT 0730. PT SITTING UP IN THE CHAIR. PT A&0X4, ANXIOUS THIS AM REGARDING FUTURE PLANS WITH METHADONE CLINIC, ETC. PT ENCOURAGED TO FOCUS ON CONTROLLING SELF ANXIETY. PT DENIES ANY PAIN OR SHORTNESS OF BREATH. PT TRACING SB/SR ON THE CHECK WRITING MACHINE OPERATOR. PT ON RA SAT UPPER 90'S. CIWA COMPLETED Q4H. REFER TO CHARTING. PT UP AD ELAINE IN ROOM. METHDAONE CURRENTLY BEING TAPERED DOWN 10MG/DAY. PT RECEIVED 45MG TODAY. PT GOAL FOR TODAY IS TO CONTROL ANXIETY, MONITOR WITHDRAWAL SYMPTOMS AND AMBULATE THE HALLWAYS. AM ASSESSMENT CHARTED. MEDICATIONS PER NOV. PT REPOSITIONS SELF. HOURLY ROUNDING OBSERVED. BED IN LOW POSITION. CALL LIGHT WITHIN REACH. WILL CONTINUE PLAN OF CARE.
[2018-01-08 15:50] VITALS: BP 97/61
--- NOTE | 2018-01-08 17:32 | NUR ---
NO ACUTE CHANGES THROUGHOUT SHIFT. REFER TO CHARTING. METHADONE TAPERING-PT RECEIVED 45MG TODAY. CIWA COMPLETED Q4H- PT SCORING BETWEEN 4-6. REFER TO CHARTING. TREATED WITH PRN PO ATIVAN WITH RELIEF. PT CONTINUES TO TRACE SR ON THE CONTROLLER COAL OR ORE. ON RA SAT UPPER 90'S. DENIES ANY SHORTNESS OF BREATH. PT UP AD ELAINE. PT AMBULATED IN HALLWAYS TODAY. PT HAD A SHOWER THIS AFTERNOON. MEDICATIONS PER NOV. PT REPOSITIONS SELF. HOURLY ROUNDING OBSERVED. BED IN LOW POSITION. CALL LIGHT WITHIN REACH. WILL CONTINUE PLAN OF CARE.
[2018-01-08 20:00] VITALS: BP 113/61
--- NOTE | 2018-01-08 23:05 | NUR ---
ASSUMED PT CARE AT 19:15 PATIETN IS ALERT AWAKE ORIENTE X4 PLEASANT. NO COMPLAINT OF PAIN AT THIS MOMENT. VITAL SIGNS WITHIN NORMAL LIMIT SINURS RYTHM ON THE MONITOR. ASSESSMENT PERFORMED. REFER TO CHART, CIWA SCORE OF 5 , MILD ANXIETY NOTICED,AND LITTLE TREMORS. PT REQUESTED SOME PO ATIVAN WHICH WERE ADMINISTERED. WOUNDS AT SACRUM AND RIGHT ELBOW WERE VISUALIZED AND PICTURES TAKEN PER ROUTINE. NEW DRESSING APPLIED AFTER WASHING WITH NORMAL SALINE. MEDICATIONS WERE ADMINISTERED ORDERED. PT IS NOW RESTING IN BED. LIGHTS ARE OFF. AND QUIET ROOM. WILL CONTINUE TO MONITOR
[2018-01-09] VITALS (7 sets, daily range): BP systolic 89–127; BP diastolic 53–72
--- NOTE | 2018-01-09 09:33 | NUR ---
ASSUMED CARE OF PATIENT AFTER REPORT THIS MORNING. PATIENT AWAKE, ALERT, AND ORIENTED APPROPRIATELY. PHYSICAL ASSESSMENT COMPLETED AND CHARTED. COMPLAINED OF HEADACHE AND GENERALIZED PAIN. STATED HE THOUGHT THIS WAS BECAUSE WE ARE TAPERING HIS METHADONE. PATIENT IS UNHAPPY ABOUT THIS STATING "YOU CANT JUST DO THAT." SCHEDULED MEDICATIONS GIVEN, SEE EMAR FOR DOCUMENTATION. VITAL SIGNS STABLE. OXYGEN SATURATION WITHIN NORMAL LIMITS ON ROOM AIR. PATIENT TRANSFERS AND AMBULATES INDEPENDENTLY IN ROOM WITHOUT DIFFICULTY. SPOKE WITH [facility]ETHADONE CLINIC THIS MORNING AND STATES HE HAS AN APPOINTMENT SET UP FOR Tuesday. STATES HIS METHADONE WILL HAVE TO BE INCREASED BACK UP FOR METHADONE CLINIC. DENIES NEEDS AT THIS TIME. CALL LIGHT WITHIN REACH. NURSING WILL CONTINUE TO MONITOR.
--- NOTE | 2018-01-09 09:41 | NUR ---
Pt updated CM that he has an appt at a different [facility] location on January 11 at 930am. CM attempted to call and confirm appt, left , awaiting call back. [address] [place] [id number]
--- NOTE | 2018-01-09 16:37 | NUR ---
RECEIVED REPORT FROM MINO. PT UP AD ELAINE. PT ANXIOUS. PT ABLE TO CALL OUT AND MAKE NEEDS KNOWN. WILL CONTINUE TO MONITOR.
--- NOTE | 2018-01-10 01:05 | NUR ---
ASSUMED PT CARE AT 19:15 RECEIVED REPORT FROM NURSE. PT IS ALERT AWAKE ORIENTED X 4. STATES THAT HE IS HAPPY THAT HE IS GOING HOME TOMORROW. VITAL SIGNS TAKEN. WITHIN NORMAL LIMIT. O2 SATURATION IS 95 ON RA. ASSESSMENT PERFORMED REFER TO CHART. CIWA SCORE DECREASES TO 1 THIS SHIFT. PT SEEMS REALLY CALM WITHOUT SIGN OF TREMORS. HE REQUESTED HIS MEDICATIONS AND SOME VANILLA POUNDING BEFORE BED TIME. MEDICATIONS WERE ADMINISTERED ORDERED. PT WOUND DRESSINGS LOOK CLEAN AND INTACT FROM YESTERDAY. SINUS RYHTM ON THE MONITOR. PT IS NOW SLEEPING. LIGHTS ARE OFF AND QUIET ROOM . WILL CONTINUE TO MONITOR.
[2018-01-10 01:38] VITALS: BP 135/84
[2018-01-10 06:08] VITALS: BP 110/54
[2018-01-10 07:44] VITALS: BP 124/82
--- NOTE | 2018-01-10 07:45 | NUR ---
RECEIVED REPORT. ASSUMED CARE OF PT AT 0730. VSS. CARDIAC MONITORING IN PLACE SR. AM ASSESSMENT AND VITALS COMPLETED CHARTED. PT ALERT AND ORIETNED. PT MILDLY ANXIOUS THIS AM. PT ON RA. PT UP INDPENDENTLY IN ROOM. PLAN FOR PT TO DISCHARGE TODAY. PT INFORMED OF PLAN OF CARE. PT COMMUNCIATES UNDERSTANDING. CALL LIGHT IS WITHIN REACH. WILL CONTINUE TO MOTNIOR FOR DURATION OF SHIFT.
[2018-01-10] MEDS ORDERED: METHADONE HCL 110 M1 PO (09:01)
[2018-01-10] MEDS ORDERED: ABILIFY 5 MG TAB5 MG PO (09:01)
[2018-01-10] MEDS ORDERED: LISINOPRIL40 MG PO (09:01)
[2018-01-10] MEDS ORDERED: ATIVAN1 MG PO (09:01)
[2018-01-10] MEDS ORDERED: PRENATAL PO (09:01)
[2018-01-10] MEDS ORDERED: HALOPERIDOL 5 MG5 MG PO (09:01)
[2018-01-10 09:56] VITALS: BP 105/68
--- NOTE | 2018-01-10 11:49 | NUR ---
PT TOLD THIS NURSE THAT [facility] CALLED AND SAID THEY NO LONGER CAN ACCEPT HIM FOR HIS APPOINTMENT TOMORROW. PT ALSO STATES THAT HE CALLED [facility] AND THEY SAID THEY COULD TAKE PT ON 01/23. CM NOTIFIED. PT ON PHONE WITH [facility] AGAIN. THIS NURSE ASKED CM TO CONTACT CLINICS TO VERIFY SITUTAION. WILL CONTINUE TO MONITOR.
--- NOTE | 2018-01-10 12:30 | NUR ---
FELIX finally was able to touch base with staff at [facility], they are unable to accept Pt to any of their clinics. Spoke with Pt, he stated that can accept him on 01/23. FELIX contacted and spoke with Sherie at [facility] Dept of Psychiatry, she confirmed that Pt has an appt on 01/23, Sherie stated that they will contact Pt if someone becomes available sooner, Sherie informed CM that they are currently booked. p:[phone]
--- NOTE | 2018-01-10 13:47 | NUR ---
DISCHARGE ORDERS RECIEVED AND PREPARED. IV AND CARDIAC MONTIORING DISCONTINUED. DR. JESUS INFORMED THAT PT CAN NOT GET INTO METHADONE CLINIC UNTIL 12/24/17. THIS APPOINTMENT WAS VERIFIED BY CM. DR. JESUS SAID PT IS STILL TO DISCHARGE WITH SCRIPTS FOR ATIVAN, ABILIFY, HALDOL, LISINOPRIL, AND VITAMIN. CM AND THIS NURSE IN TO DISCUSS PLAN WITH PT. PT REPORTS CONCERNS WITH METHADONE AND UNABLE TO GET INTO CLINIC. PT ADVISED TO CONTINUE TO CALL CLINICS DAILY TO SEE IF [facility] APPOINTMENT IS AVAILABLE. PT ASKING IF HE CAN COME BACK HERE DAILY TO GET METHADONE. PT INFORMED THAT DR. JESUS CAN NOT PRESCRIBE HIM THAT AN OUTPATIENT. PT COMMUNICATES UNDERSTANDING. PT GIVEN COPY OF DISCHARGE PAPERWORK AND ABOVE SCRIPTS. PT'S PERSONAL BELONGINGS GATHERED. PT WAITING IN ROOM FOR RIDE.
== END 2018-01-10 15:00 | disposition home or self-care (01) | DRG 391 ==
LOC: M.ERS 04:53 → M.ICU 06:56 → M.2W 06:56 → M.TBA-ER 06:56 → M.ICU 09:32 → M.2W 12-31 17:04
PROVIDERS: Emergency Medicine Emergency Medical Services; Family Medicine; Internal Medicine Gastroenterology; ADMIT Internal Medicine
DX: K44.9 Diaphragmatic hernia without obstruction or gangrene (principal); E43 Unspecified severe protein-calorie malnutrition; R65.10 Systemic inflammatory response syndrome (SIRS) of non-infectious origin without acute organ dysfunction; F15.93 Other stimulant use, unspecified with withdrawal; F10.239 Alcohol dependence with withdrawal, unspecified; E86.0 Dehydration; F10.229 Alcohol dependence with intoxication, unspecified; I10 Essential (primary) hypertension; F17.210 Nicotine dependence, cigarettes, uncomplicated; E83.42 Hypomagnesemia; D50.9 Iron deficiency anemia, unspecified; D64.9 Anemia, unspecified; R12 Heartburn; Z68.21 Body mass index [BMI] 21.0-21.9, adult; Z79.899 Other long term (current) drug therapy

== ENCOUNTER 2018-01-13 08:38 | Emergency (ER) | payer OTHER ==
[~2018-01-13] VITALS: Ht 177.8 cm; Wt 61.2 kg
[~2018-01-13 08:38] MED LIST changes: +ABILIFY 5 MG TAB5 MG PO; +ATIVAN1 MG PO; +HALOPERIDOL 5 MG5 MG PO; +LISINOPRIL20 MG PO; +LISINOPRIL40 MG PO; +METHADONE HCL 110 M1 PO; +METHADONE10 MG/1 M1 PO; +PRENATAL PO
[2018-01-13 09:26] LABS: ABSOLUTE LYMPHOCYTES 2.9 thou/uL (0.8-5.3); ABSOLUTE MONOCYTES 0.3 thou/uL (0.0-1.2); BASOPHILS 0.6 %; EOSINOPHILS 0.4 %; HEMATOCRIT 44.3 % (42.0-52.0); HEMOGLOBIN 15.7 gm/dL (14.0-18.0); LYMPHOCYTES 35.3 %; MCH 34.4 pg (26.0-34.0); MCHC 35.4 g/dL (28.0-37.0); MCV 97.3 fL (80.0-100.0); MONOCYTES 3.4 %; MPV 7.6 fl. (7.2-11.1); NUCLEATED RBCS 0 /100WBC; PLATELET COUNT* 291 thou/uL (150-400); POLYS 60.3 %; RBC 4.56 mil/uL (4.50-6.00); RDW-CV 14.6 % (10.5-14.5); WBC 8.2 thou/uL (4.0-11.0)
[2018-01-13 09:33] LABS: CALCIUM 8.4 mg/dL (8.5-10.1); CREATININE 0.9 mg/dL (0.6-1.3); POTASSIUM 3.9 mmol/L (3.5-5.1)
[2018-01-13 09:37] LABS: ALBUMIN 3.8 g/dL (3.4-5.0); TOTAL BILIRUBIN 0.1 mg/dL (<0.1-1.0); TOTAL PROTEIN 7.8 g/dL (6.4-8.2)
[2018-01-13 09:40] LABS: ACETAMINOPHEN < 2 ug/mL (10-30); ALCOHOL 268 mg/dL (<10)
[2018-01-13 09:41] LABS: SALICYLATE 2.4 mg/dL (2.8-20.0)
[2018-01-13 09:56] LABS: URINE BILIRUBIN NEGATIVE (Negative); URINE BLOOD NEGATIVE (Negative); URINE CLARITY CLEAR; URINE COLOR YELLOW; URINE GLUCOSE-RANDOM NEGATIVE (Negative); URINE KETONES NEGATIVE (Negative); URINE LEUKOCYTES-REFLEX NEGATIVE (Negative); URINE NITRITE-REFLEX NEGATIVE (Negative); URINE PROTEIN NEGATIVE (Negative); URINE UROBILINOGEN 0.2 E.U./dl (0.2-1.0)
[2018-01-13 10:04] LABS: AMP/METHAMP Negative (Negative); BARBITURATES Negative (Negative); BENZODIAZEPINES Negative (Negative); COCAINE Negative (Negative); METHADONE POSITIVE (Negative); OPIATES Negative (Negative); PCP Negative (Negative); THC Negative (Negative)
[2018-01-13] MEDS ORDERED: ZOFRAN ODT4 MG PO (10:39)
[2018-01-13 10:41] VITALS: BP 114/82
--- NOTE | 2018-01-13 10:54 | NUR ---
CM contacted Dept of Psychiatry, they continue to be full and unable to accept Pt to their methadone clinic at this time. They are still able to accept Pt for the appt on the and will contact him if they have cancellations.
== END 2018-01-13 10:47 | disposition home or self-care (01) ==
LOC: M.ERS 08:38
PROVIDERS: Emergency Medicine
DX: F10.20 Alcohol dependence, uncomplicated (principal); F10.239 Alcohol dependence with withdrawal, unspecified; F19.939 Other psychoactive substance use, unspecified with withdrawal, unspecified; I10 Essential (primary) hypertension; F15.10 Other stimulant abuse, uncomplicated; F11.10 Opioid abuse, uncomplicated; F17.210 Nicotine dependence, cigarettes, uncomplicated; Y90.8 Blood alcohol level of 240 mg/100 ml or more

== ENCOUNTER 2018-02-27 08:14 | Emergency (ER) | payer OTHER ==
[~2018-02-27] VITALS: Ht 182.9 cm; Wt 81.7 kg
[~2018-02-27 08:14] MED LIST changes: +ZOFRAN ODT4 MG PO
[2018-02-27] MEDS ORDERED: BYSTOLIC2.5 MG PO (08:27)
[2018-02-27 08:37] LABS: URINE BILIRUBIN NEGATIVE (Negative); URINE BLOOD NEGATIVE (Negative); URINE CLARITY CLEAR; URINE COLOR YELLOW; URINE GLUCOSE-RANDOM NEGATIVE (Negative); URINE KETONES NEGATIVE (Negative); URINE LEUKOCYTES-REFLEX NEGATIVE (Negative); URINE NITRITE-REFLEX NEGATIVE (Negative); URINE PROTEIN TRACE (Negative); URINE UROBILINOGEN 0.2 E.U./dl (0.2-1.0)
[2018-02-27 08:44] LABS: AMP/METHAMP Negative (Negative); BARBITURATES Negative (Negative); BENZODIAZEPINES Negative (Negative); COCAINE Negative (Negative); METHADONE POSITIVE (Negative); OPIATES Negative (Negative); PCP Negative (Negative); THC Negative (Negative)
[2018-02-27 08:53] LABS: HEMOGLOBIN 14.9 gm/dL (14.0-18.0); NUCLEATED RBCS 0 /100WBC
[2018-02-27 08:55] LABS: ABSOLUTE LYMPHOCYTES 2.7 thou/uL (0.8-5.3); CREATININE 0.7 mg/dL (0.6-1.3); POTASSIUM 3.9 mmol/L (3.5-5.1)
[2018-02-27 08:59] LABS: ABSOLUTE BASOPHILS 0.1 thou/uL (0.0-0.2); ABSOLUTE MONOCYTES 0.4 thou/uL (0.0-1.2); ABSOLUTE NEUTROPHILS 3.8 thou/uL (1.6-8.1); ALBUMIN 3.8 g/dL (3.4-5.0); BASOPHILS 0.7 %; EOSINOPHILS 0.4 %; HEMATOCRIT 42.3 % (42.0-52.0); LYMPHOCYTES 38.4 %; MCH 34.3 pg (26.0-34.0); MCHC 35.2 g/dL (28.0-37.0); MCV 97.6 fL (80.0-100.0); MONOCYTES 6.1 %; MPV 7.2 fl. (7.2-11.1); PLATELET COUNT* 286 thou/uL (150-400); POLYS 54.4 %; RBC 4.33 mil/uL (4.50-6.00); RDW-CV 14.8 % (10.5-14.5); TOTAL BILIRUBIN 0.2 mg/dL (<0.1-1.0); TOTAL PROTEIN 7.8 g/dL (6.4-8.2)
[2018-02-27 09:36] LABS: ALCOHOL 326 mg/dL (<10); SALICYLATE 6.2 mg/dL (2.8-20.0)
[2018-02-27 09:38] LABS: ACETAMINOPHEN < 2 ug/mL (10-30)
[2018-02-27 11:22] VITALS: BP 131/93
--- NOTE | 2018-02-27 18:44 | EKG ---
[place] [address] ELECTROCARDIOGRAM REPORT Name: ELLIOTT HERNANDEZ Room: 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: : 1960 Requested By: Quirino Carrion Order Number: [id number] MD: Wade Dee Measurements Intervals [place] Rate: 73 P: 72 [place]: 180 QRS: 73 QRSD: 90 T: 80 QT: 434 QTc: 479 Interpretive Statements Sinus rhythm Minimal ST elevation, inferior leads Borderline prolonged QT interval Baseline wander in lead(s) V2 Compared to ECG 12/24/2017 08:29:49 ST (T wave) deviation now present Sinus tachycardia no longer present Electronically Signed On 02-27-2018 18:44:12 CDT by Wade Dee [email or web address] <ELECTRONICALLY SIGNED> By: Wade Dee MD, [facility] 02/27/18 1844 [id number] Wade Dee MD, [facility] /EPI
== END 2018-02-27 11:23 | disposition home or self-care (01) ==
LOC: M.ERS 08:14
PROVIDERS: Family Medicine
DX: F10.129 Alcohol abuse with intoxication, unspecified (principal); I10 Essential (primary) hypertension; F17.210 Nicotine dependence, cigarettes, uncomplicated

== ENCOUNTER 2018-03-19 07:32 | Emergency (ER) | payer OTHER ==
[~2018-03-19] VITALS: Ht 182.9 cm; Wt 74.8 kg
[~2018-03-19 07:32] MED LIST changes: +BYSTOLIC2.5 MG PO
[2018-03-19 08:05] LABS: ABSOLUTE BASOPHILS 0.1 thou/uL (0.0-0.2); ABSOLUTE MONOCYTES 0.5 thou/uL (0.0-1.2); ABSOLUTE NEUTROPHILS 3.6 thou/uL (1.6-8.1); BASOPHILS 1.8 %; EOSINOPHILS 0.5 %; HEMATOCRIT 38.4 % (42.0-52.0); HEMOGLOBIN 13.2 gm/dL (14.0-18.0); LYMPHOCYTES 40.8 %; MCH 34.4 pg (26.0-34.0); MCHC 34.4 g/dL (28.0-37.0); MCV 99.9 fL (80.0-100.0); MONOCYTES 7.1 %; MPV 6.9 fl. (7.2-11.1); NUCLEATED RBCS 0 /100WBC; PLATELET COUNT* 385 thou/uL (150-400); POLYS 49.8 %; RBC 3.85 mil/uL (4.50-6.00); WBC 7.3 thou/uL (4.0-11.0)
[2018-03-19 08:30] LABS: ANION GAP 8 mmol/L (7-16); BUN 10 mg/dL (7-18); CALCIUM 8.3 mg/dL (8.5-10.1); CHLORIDE 101 mmol/L (98-107); CO2 32 mmol/L (21-32); CREATININE 0.7 mg/dL (0.6-1.3); GLUCOSE 102 mg/dL (70-99); POTASSIUM 4.7 mmol/L (3.5-5.1); SODIUM 141 mmol/L (136-145)
[2018-03-19 08:40] LABS: ALBUMIN 3.7 g/dL (3.4-5.0); ALKALINE PHOSPHATASE 71 U/L (46-116); LIPASE 95 U/L (73-393); MAGNESIUM 1.7 mg/dL (1.8-2.4); NT-PRO BRAIN NAT PEPTIDE 200 pg/mL (<300); SGOT 23 U/L (15-37); SGPT 27 U/L (30-65); TOTAL BILIRUBIN 0.3 mg/dL (<0.1-1.0); TOTAL PROTEIN 7.3 g/dL (6.4-8.2); TROPONIN-I LEVEL <0.06 ng/mL (<0.06)
[2018-03-19 09:22] LABS: URINE BILIRUBIN NEGATIVE (Negative); URINE BLOOD NEGATIVE (Negative); URINE CLARITY CLEAR; URINE COLOR YELLOW; URINE GLUCOSE-RANDOM NEGATIVE (Negative); URINE KETONES NEGATIVE (Negative); URINE LEUKOCYTES NEGATIVE (Negative); URINE NITRITE NEGATIVE (Negative); URINE PROTEIN NEGATIVE (Negative); URINE UROBILINOGEN 0.2 E.U./dl (0.2-1.0)
[2018-03-19 09:33] LABS: AMP/METHAMP Negative (Negative); BARBITURATES Negative (Negative); BENZODIAZEPINES Negative (Negative); COCAINE Negative (Negative); METHADONE POSITIVE (Negative); OPIATES Negative (Negative); PCP Negative (Negative); THC Negative (Negative)
[2018-03-19 10:24] VITALS: BP 124/74
--- NOTE | 2018-03-19 14:10 | EKG ---
[place] [address] ELECTROCARDIOGRAM REPORT Name: [facility]LLIOTT HER[facility]DEZ 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 03/19/18 1410 0738 Pablo Dunham MD, [facility] /EPI
--- NOTE | 2018-03-21 13:28 | EKG ---
[place] [address] ELECTROCARDIOGRAM REPORT Name: ELLOITT HERNANDEZ Room: [facility]#: [id number] Admission: 03/19/18 Attend Phys: Discharge: 03/19/18 Date of : 64 Report #: [id number] THIS REPORT FOR: //name// [facility] ED Test Date: 2018-03-19 Test Time: 09:41:07 Pat Name: ELLIOTT HERNANDEZ Department: Room: Gender: M Pit Boss: Naila WEISS : 1960 Requested By: Josué Taylor Order Number: [id number] MD: Josué Mukherjee Measurements Intervals [place] Rate: 66 P: [place]: QRS: 64 QRSD: 92 T: 66 QT: 467 QTc: 490 Interpretive Statements nsr Borderline prolonged QT interval Baseline wander in lead(s) I,II,aVR,V1,V2 Compared to ECG 03/19/2018 07:38:51 Junctional rhythm now present Sinus rhythm no longer present Short [place] interval no longer present Electronically Signed On 03-21-2018 13:28:21 CDT by Josué Mukherjee [email or web address] <ELECTRONICALLY SIGNED> By: Josué Mukherjee MD, [facility] 03/21/18 1328 0941 0941 Josué Mukherjee MD, [facility] /EPI
== END 2018-03-19 10:38 | disposition home or self-care (01) ==
LOC: M.ERS 07:32
PROVIDERS: Emergency Medicine Emergency Medical Services
DX: R07.89 Other chest pain (principal); I10 Essential (primary) hypertension; F17.210 Nicotine dependence, cigarettes, uncomplicated